=== PATIENT | female | born 1975 ===

== ENCOUNTER → 2018-05-21 21:15 | Outpatient (REF) | payer OTHER, SELFPAY | LOC: LAB 21:15 | PROVIDERS: Visit Provider Naturopath | DX: N39.0 Urinary tract infection, site not specified (principal) | CPT/HCPCS: 87086 ==

== ENCOUNTER → 2018-05-28 22:18 | Outpatient (REF) | payer OTHER, SELFPAY | LOC: LAB 22:18 | PROVIDERS: Visit Provider Family Medicine | DX: O03.38 Urinary tract infection following incomplete spontaneous abortion (principal) | CPT/HCPCS: 87086 ==